=== PATIENT | female | born 1990 | race Hispanic/Latino ===

== ENCOUNTER 2017-03-20 17:12 | Emergency (ER) | payer SELFPAY ==
[~2017-03-20] VITALS: Ht 157.5 cm; Wt 64.8 kg
[2017-03-20 18:42] VITALS: BP 125/69
== END 2017-03-20 18:42 | disposition home or self-care (01) | DRG 159 ==
LOC: ED 17:12
DX: K13.29 Other disturbances of oral epithelium, including tongue (principal); F17.210 Nicotine dependence, cigarettes, uncomplicated